=== PATIENT | female | born 1960 | race Caucasian/White ===

== ENCOUNTER 2023-07-04 18:49 | Emergency (ER) | payer MEDICAID ==
[~2023-07-04] VITALS: Ht 162.6 cm; Wt 59.0 kg
[~2023-07-04 18:49] MED LIST: ACET-3117 PO; ALBU5SOL7 IH; APIX5TAB PO; BENZ1TAB7 PO; CEPH500T PO; DILT120T2 PO; FLUT1BLS11 IH; HALO5TAB PO; IPRA0.2S48 NEB; METO50TA16 PO; NICO-625 TD; THIA100T74 PO
[2023-07-04] MEDS: IV NORMAL SALINE 1000 ML BAG IV ONE (19:50)
[2023-07-04 20:20] LABS: BASOPHILS # (AUTO) 0.4 K/UL (0.0-0.2); BASOPHILS % (AUTO) 4.8 % (0.0-2.0); DIFFERENTIAL COMMENT 0; EOSINOPHILS # (AUTO) 0.3 K/uL (0.0-0.7); EOSINOPHILS % (AUTO) 3.2 % (0.0-7.0); HEMATOCRIT 37.7 % (31.2-41.9); HEMOGLOBIN 12.5 g/dL (10.9-14.3); LYMPHOCYTES # (AUTO) 1.9 K/uL (0.8-4.8); LYMPHOCYTES % (AUTO) 24.4 % (20.5-51.5); MEAN CORPUSCULAR HEMOGLOBIN 28.9 uug (24.7-32.8); MEAN CORPUSCULAR HGB CONC 33 g/dL (32.3-35.6); MONOCYTES # (AUTO) 0.5 K/uL (0.1-1.30); MONOCYTES % (AUTO) 6.6 % (0.0-11.0); NEUTROPHILS # (AUTO) 4.9 K/uL (1.8-8.9); PLATELET COUNT (AUTO) 298 K/uL (179-408); RED BLOOD CELL COUNT(AUTO) 4.34 MIL/uL (3.63-4.92)
[2023-07-04 20:22] LABS: CALCIUM 9.5 mg/dL (8.5-10.1); CARBON DIOXIDE 31 mmol/L (21-32); CHLORIDE 106 mmol/L (98-107); CREATININE 0.5 mg/dL (0.6-1.3); GLUCOSE 96 mg/dL (74-106); POTASSIUM 3.3 mmol/L (3.5-5.1); SODIUM SERUM 145 mmol/L (136-145); UREA NITROGEN, BLOOD 9 mg/dL (7-18)
[2023-07-04 20:25] LABS: AMMONIA < 10 umol/L (11-32); ETHANOL < 3 MG/DL (0-10)
[2023-07-04 20:30] LABS: ALANINE AMINOTRANSFERASE 9 U/L (14-59); ALKALINE PHOSPHATASE 109 U/L (50-136); ASPARTATE AMINOTRANSFERASE 16 U/L (15-37); BILIRUBIN,DIRECT 0.3 mg/dL (0.0-0.2); BILIRUBIN,TOTAL 0.6 mg/dL (0.2-1.0); TOTAL PROTEIN, SERUM 7.1 g/dL (6.4-8.2)
[2023-07-04 20:35] LABS: ACETAMINOPHEN < 10.0 ug/mL (10-30); THYROID STIMULATING HORMONE 1.089 mIU/mL (0.358-3.740)
[2023-07-04 22:38] LABS: *BILIRUBIN,URIN NEGATIVE (NEGATIVE); *BLOOD, URINE NEGATIVE (NEGATIVE); *COLOR,URINE YELLOW (YELLOW); *KETONES,URINE NEGATIVE (NEGATIVE); *PROTEIN,URINE NEGATIVE (NEGATIVE); *UROBILINOGEN,URINE 0.2 E.U./dl (NORMAL); LEUKOCYTE ESTERASE ,URINE 3+ (NEGATIVE); NITRITE, URINE NEGATIVE (NEGATIVE); UGLUCOSE NEGATIVE (NEGATIVE)
[2023-07-04 22:41] LABS: *CLARITY,URINE CLOUDY (CLEAR)
[2023-07-04 22:55] LABS: WBC,URINE 20-50 /HPF (0-3)
[2023-07-04 22:56] LABS: BACTERIA,URINE FEW /HPF (NONE SEEN); SQUAMOUS EPITHELIAL CELL,UR MANY /HPF (NONE SEEN)
[2023-07-04 23:22] VITALS: BP 122/80; TEMP 98; O2SAT 100
[2023-07-11] MEDS ORDERED: CEPH500C2 PO (05:10)
== END 2023-07-04 23:37 ==
LOC: ER 18:51
DX: E86.0 Dehydration (principal); I48.91 Unspecified atrial fibrillation; M54.2 Cervicalgia; R51.9 Headache, unspecified; Z79.899 Other long term (current) drug therapy; W18.39XA Other fall on same level, initial encounter; Y93.89 Activity, other specified; Y92.89 Other specified places as the place of occurrence of the external cause; Y99.8 Other external cause status
CPT/HCPCS: 80076; 80048; 81001; 82140; 82962; 84443; 85025; 85730; 84484; 36415; 93005; 71045; 70450; 72125; 99285; 96360; 96361; 80299; 80320; 80179; J7040; A4606; A4663; G0480